=== PATIENT | female | born 2000 | race Caucasian/White ===

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

== ENCOUNTER 2021-02-06 23:07 | Emergency (ER) | payer MEDICAID, SELFPAY ==
[2021-02-06 23:19] VITALS: BP 111/64; PULSE 64; RESP 15; TEMP 36.8; O2SAT 98
[2021-02-06 23:19] LABS: Bilirubin Negative (Negative); Blood Trace-intact (Negative); Clarity Sl Cloudy (Clear); Glucose Negative (Negative); Ketones Negative (Negative); Leukocyte Esterase Trace (Negative); Nitrite Negative (Negative); Specific Gravity 1.025 (1.005-1.025)
[2021-02-06 23:26] LABS: Epithelial Cells Many HPF (Negative); WBC 0-2 HPF (0-5)
[2021-02-06 23:27] LABS: Bacteria Few HPF (Negative); C & S Indicated? No/Sq. Contamination; Crystals Few Amorphous HPF (Negative); Mucus Heavy (Negative)
--- NOTE | 2021-02-06 23:31 | W.ED.GENAD ---
Discharge Plan Disposition Patient Disposition: HOME Condition: Stable Discharge Details Clinical Impression: Dyspareunia Primary Care Provider: Minerva Mckeon ED Provider: Osbaldo Samaniego Home Meds and New Rx's Prescriptions: Continued epinephrine [EpiPen 2-Lorenzo] 0.3 MG/0.3 ML auto-injector 0.3 mg IJ PRN PRN (Reason: Anaphylaxis) Qty: 1 RF: 0 Velvet 14 mcg/24 hour (3 years) Intrauterine Device See Rx Instructions .ROUTE .COMPLEX RF: 0 Discharge Instructions Additional Instructions: Your exam was reassuring today against having a surgical emergency call [facility] at [phone] to set up an appointment if you have severe worsening pain, fever, persistent vomit or feel more ill return to the emergency department Medical Decision Making 20 yo female who denies chronic medical problems comes in with chief complaint of pain after intercourse intermittently for the last few months. She states when she does get the pain it lasts less than an hour and is in the pelvis. Denies vomit, fevers, chills, and no vaginal bleeding or discharge. Has been with only one partner and denies concern for std. No urinary symptoms. She has no tenderness on abdomen exam, no distention, no guarding or rebound. POC hcg negative. Her exam and history are not consistent with entities such as ovarian torsion, appendicitis, perforated viscous or other surgical emergencies and do not feel CT indicated. I did recommend an ultrasound as an outpatient which I offered to order and have done tomorrow when ultrasound is here but she declined and would prefer to follow up with [facility]. I also offered to perform pelvic and speculum exam which she again declined and I feel is reasonable given she denies any bleeding, discharge or vaginal complaints. Will d/c and have her f/u with [facility] and discussed indications to return to the ED which she understood. HPI General Mode of arrival: ambulatory. Date/Time Provider Initiated Documentation: 02/06/21 23:21. Limitations to Documentation: no limitations. Information obtained by: patient. History of Present Illness 20 year old F presents to the emergency department with the chief complaint of pain after intercourse, described as mild, Quality is described as aching, and is localized to the pelvis. Patient reports no radiation. Patient started experiencing this month(s) (4) and it has been intermittent. No relieving factors improve symptom(s), No exacerbating factors reported . Patient notes no other symptoms.. 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 Father No problems noted. Sister No problems noted. Sister No problems noted. Grandfather Diabetes Grandmother No problems noted. Social History Smoking/Tobacco Use Status: Never Smoking risk assessment performed?: Yes Alcohol Intake: never Drug use: Never Substance use type: does not use Do you feel safe at home: Yes Do you feel safe in your relationship?: Yes Exam Const General: no acute distress Orientation: alert HENUT Head: normal to inspection Ears: external ears normal General nose exam: external nose normal Mouth: moist mucous membranes Eyes General: appearance normal, both eyes and all related structures Neck Neck: normal visual inspection Resp Effort & Inspection: normal respiratory effort and able to speak in complete sentences Cardio Rate: regular rate GI Palpation: soft, not firm, no guarding and nontender Skin General skin exam: no rashes or lesions noted Neuro General: patient alert and patient oriented x3 Extrem General: normal to inspection Psych Mental Status: mental status grossly normal Course Vital Signs Vital signs: Vital Signs Temperature 36.8 C 02/06/21 23:19 Pulse 64 02/06/21 23:19 Respiratory Rate 15 02/06/21 23:19 Blood Pressure 111/64 02/06/21 23:19 Pulse Oximetry 98 02/06/21 23:19 Temperature 36.8 C 02/06/21 23:19 Temperature Source Temporal Artery Scan 02/06/21 23:19 Pulse 64 02/06/21 23:19 Respiratory Rate 15 02/06/21 23:19 Respiratory Effort 02/06/21 23:25 Blood Pressure 111/64 02/06/21 23:19 Blood Pressure Position Sitting 02/06/21 23:19 Pulse Oximetry 98 02/06/21 23:19 Oxygen Delivery Method Room Air 02/06/21 23:19 Oxygen Flow Rate 0 02/06/21 23:19 Pain Level 5 02/06/21 23:25 Lab/Test Results Lab/Test Results: Laboratory Tests Range/Units 02/06/21 23:15 Urine Color (Yellow) Yellow Urine Clarity (Clear) Sl Cloudy Urine pH (5-8) 7.0 Ur Specific [place] (1.005-1.025) 1.025 Urine Protein (Negative) mg/dL Trace H Urine Ketones (Negative) mg/dL Negative Urine Blood (Negative) Trace-intact H Urine Nitrite (Negative) Negative Urine Bilirubin (Negative) Negative Urine Urobilinogen (Up TO 0.2) EU/dL 1.0 H Ur Leukocyte Esterase (Negative) Trace H Urine RBC (0-2) HPF 3-5 H Urine WBC (0-5) HPF 0-2 Ur Epithelial Cells (Negative) HPF Many Urine Crystals (Negative) HPF Few Amorphous Urine Bacteria (Negative) HPF Few Urine Mucus (Negative) Heavy Ur Culture Indicated? No/Sq. Contamination Urine Glucose (Negative) mg/dL Negative POC- Test(urine) Negative
[2021-02-06] MEDS: Ibuprofen 600 MG TAB PO (23:41)
== END 2021-02-06 23:45 | disposition home or self-care (01) ==
PROVIDERS: Emergency Provider Emergency Medicine; PCP Family Medicine
DX: N94.10 Unspecified dyspareunia (principal)
CPT/HCPCS: 81025; 99282; 81003; 81015

== ENCOUNTER 2021-07-02 17:12 | Emergency (ER) | payer MEDICAID, SELFPAY ==
[2021-07-02 17:17] VITALS: BP 123/74; PULSE 94; RESP 16; TEMP 37; O2SAT 100
--- NOTE | 2021-07-02 17:21 | ED.GENADUL_ITS ---
Discharge Plan Disposition Patient Disposition: HOME Condition: Stable Discharge Details Clinical Impression: UTI (urinary tract infection) Primary Care Provider: Minerva Mckeon ED Provider: Erinn Joseph Home Meds and New Rx's Prescriptions: New nitrofurantoin monohyd/m-cryst [Macrobid] 100 mg capsule 100 mg PO Q12H 7 Days Qty: 14 RF: 0 No Action epinephrine [EpiPen 2-Lorenzo] 0.3 MG/0.3 ML auto-injector 0.3 mg IJ PRN PRN (Reason: Anaphylaxis) Qty: 1 RF: 0 Velvet 14 mcg/24 hour (3 years) Intrauterine Device See Rx Instructions .ROUTE .COMPLEX RF: 0 Discharge Instructions Instructions: Urinary Tract Infection in Women (ED) Additional Instructions: Urinalysis is concerning for possible UTI. Please take the antibiotics twice daily as directed. Follow up with primary care provider in 3-5 days. Return to ED sooner if any worsening abdominal pain, nausea vomiting diarrhea, fever or concerns. Increase oral fluids. Please take Tylenol or Ibuprofen with food every 4-6 hours as needed for pain and swelling. Stand Alone Forms: Work Release Referrals: Minerva Mckeon MD [Primary Care Provider] - 1 week Medical Decision Making 20-year-old female presents to the ER with chief complaint of lower suprapubic abdominal pain which she describes a sharp began this morning for approximately 30 minutes and then has gradually improved throughout the day. She does report increased pain after urinating and dysuria. She denies any nausea vomiting diarrhea, fever or chills. She denies any CVA tenderness but she does report the pain radiates into her pelvis and around her rectal area. She denies any vaginal discharge or bleeding. Denies any vaginal itching. She reports that she is have something similar to this in the past with pain after intercourse. She reports that this pain is worse. Patient does have an IUD Velvet in place and reports that her last normal menstrual period was approximately 1 month ago. She does report a history of irregular menses. Urinalysis ordered to rule out UTI, discussed possible labs and imaging if Urine is normal. Urinalysis shows 15 ketones, small blood trace leukocytes 10-20 RBCs 20-50 WBCs however does appear to be contaminated with many epithelial cells many bacteria culture is not indicated due to squamous contamination. However, due to patient's clinical presentation and symptoms I will treat her for most likely urinary tract infection. Macrodantin 100 mg twice daily x7 days ordered. Patient given the first dose here. Discussed follow-up care and strict return instructions, verbalized understanding. Patient is requesting a work note which was written for her. Patient to be discharged in hemodynamically stable condition has not complained of any further abdominal pain during her ER visit. HPI General Mode of arrival: ambulatory . Date/Time Provider Initiated Documentation: 07/02/21 17:13 . Information obtained by: patient, RN notes reviewed and old records reviewed . HPI Narrative: 20-year-old female presents to the ER with chief complaint of lower suprapubic abdominal pain which she describes a sharp began this morning for approximately 30 minutes and then has gradually improved throughout the day. She does report increased pain after urinating and dysuria. She denies any nausea vomiting diarrhea, fever or chills. She denies any CVA tenderness but she does report the pain radiates into her pelvis and around her rectal area. She denies any vaginal discharge or bleeding. Denies any vaginal itching. She reports that she is have something similar to this in the past with pain after intercourse. She reports that this pain is worse. Patient does have an IUD Velvet in place and reports that her last normal menstrual period was approximately 1 month ago. She does report a history of irregular menses. Related Data Home Medications Medication Instructions Recorded Confirmed epinephrine [EpiPen 2-Lorenzo] 0.3 mg IJ PRN PRN #1 auto.injct 02/06/17 07/02/21 Velvet See Rx Instructions .ROUTE .COMPLEX 06/06/18 07/02/21 nitrofurantoin monohyd/m-cryst 100 mg PO Q12H 7 Days #14 cap 07/02/21 [Macrobid] Previous Rx's Medication Instructions Recorded epinephrine [EpiPen 2-Lorenzo] 0.3 mg IJ PRN PRN #1 auto.injct 02/06/17 nitrofurantoin monohyd/m-cryst 100 mg PO Q12H 7 Days #14 cap 07/02/21 [Macrobid] Allergies Allergy/AdvReac Type Severity Reaction Status Date / Time Penicillins Allergy Unverified 07/02/21 17:21 General Stated Complaint: Abd Prob YULY: 3 Review of Systems All systems reviewed & are unremarkable except as noted in HPI and below Constitutional Constitutional: Denies chills and Denies fever(s) Gastrointestinal Gastrointestinal: Reports abdominal pain, Denies change in stool character, Denies diarrhea, Denies nausea and Denies vomiting Genitourinary Genitourinary: Reports as per HPI, Reports dyspareunia (History of), Reports dysuria, Reports pelvic pain, Denies vaginal discharge and Denies vaginal pruritus [facility] Active Problem List (Updated 07/02/21 @ 18:06 by Erinn Joseph) Acute streptococcal pharyngitis (Acute) Dyspareunia (Acute) UTI (urinary tract infection) (Acute) Family History Mother No problems noted. Father No problems noted. Sister No problems noted. Sister No problems noted. Grandfather Diabetes Grandmother No problems noted. Social History Smoking/Tobacco Use Status: Never Smoking risk assessment performed?: Yes Alcohol Intake: never Drug use: Never Substance use type: does not use Do you feel safe at home: Yes Do you feel safe in your relationship?: Yes Exam Narrative Exam Narrative: Constitutional: Alert and oriented x3. Appears stated age. Normal body habitus. Head: Normocephalic, no trauma. Eyes: Pupils PERRL, Red reflex noted, EOM's intact. Eyelids symmetrical without lesions, discharge, or swelling. Chest: RRR, Normal S1, S2, distal pulses intact. Resp: Lungs clear to auscultation bilaterally, no wheezes, rales, or rhonchi. Abdomen: Soft, non-distended, Normoactive bowel sounds all 4 quads. Bilateral suprapubic tenderness with palpation no masses palpated. Musculoskeletal: Normal gait, 5/5 strength to all four extremities. Skin: No suspicious rashes or lesions. Capillary refill less than 2 sec. Neurologic: Cranial nerves II-XII intact. Alert and oriented x 3. Motor: No deficits noted. Sensory: Intact bilaterally all 4 extremities. Reflexes: DTR's intact bilaterally.. Hematologic/Lymphatic: No ecchymosis, no lymphadenopathy. Course Vital Signs Vital signs: Vital Signs Temperature 37 C 07/02/21 17:17 Pulse 94 H 07/02/21 17:17 Respiratory Rate 16 07/02/21 17:17 Blood Pressure 123/74 07/02/21 17:17 Pulse Oximetry 100 07/02/21 17:17 Temperature 37 C 07/02/21 17:17 Temperature Source Temporal Artery Scan 07/02/21 17:17 Pulse 94 H 07/02/21 17:17 Respiratory Rate 16 07/02/21 17:17 Blood Pressure 123/74 07/02/21 17:17 Blood Pressure Position Supine 07/02/21 17:17 Pulse Oximetry 100 07/02/21 17:17 Oxygen Delivery Method Room Air 07/02/21 17:17 Oxygen Flow Rate 0 07/02/21 17:17 Pain Level 0 07/02/21 17:17
[2021-07-02 17:51] LABS: Bilirubin Negative (Negative); Blood Small (Negative); Clarity Cloudy (Clear); Glucose Negative (Negative); Ketones 15 mg/dL (Negative); Leukocyte Esterase Trace (Negative); Nitrite Negative (Negative); Specific Gravity 1.025 (1.005-1.025); Urobilinogen 0.2 EU/dL (Up TO 0.2); pH 7.5 (5-8)
[2021-07-02 17:54] LABS: Bacteria Many HPF (Negative); Epithelial Cells Many HPF (Negative); Other Cells Few Renal (Negative); WBC 20-50 HPF (0-5)
[2021-07-02 17:55] LABS: C & S Indicated? No/Sq. Contamination; Casts Negative LPF (Negative); Crystals Negative HPF (Negative); Mucus Negative (Negative)
[2021-07-02] MEDS: MacroBID 100 MG CAP PO (18:18)
== END 2021-07-02 18:13 | disposition home or self-care (01) ==
PROVIDERS: Emergency Provider Registered Nurse Emergency; PCP Family Medicine
DX: N39.0 Urinary tract infection, site not specified (principal)
CPT/HCPCS: 81025; 99283; 81003; 81015

== ENCOUNTER 2021-08-24 19:07 | Outpatient (REF) | payer MEDICAID, SELFPAY | END 2021-08-24 19:08 | disposition home or self-care (01) | LOC: LBN 19:07 | PROVIDERS: PCP Family Medicine; Visit Provider Physician Assistant Medical | DX: R30.0 Dysuria (principal); N39.0 Urinary tract infection, site not specified | CPT/HCPCS: 87329; 87086; 87480; 87510; 87660 ==

== ENCOUNTER 2022-12-10 20:25 | Inpatient (IN) | payer MEDICAID, SELFPAY ==
[2022-12-10 20:38] VITALS: BP 112/61; PULSE 95; RESP 18; TEMP 36.7; O2SAT 100
--- NOTE | 2022-12-10 21:00 | DI.CT_ITS ---
Exam(s) CT ABDOMEN PELVIS W EXAM: CT ABDOMEN PELVIS W CLINICAL HISTORY: RUQ abd pain, N/V. TECHNIQUE: Imaging Protocol: Axial computed tomography images with coronal and sagittal reformatted images were created and reviewed CONTRAST MATERIAL: Intravenous: Omnipaque-350 100cc Oral: None COMPARISON: No exams were available for comparison FINDINGS: VISUALIZED LUNG BASES: No nodules nor pleural effusions evident. ABDOMEN: There is no ascites. LIVER: There are no focal hepatic lesions evident. No dilated intrahepatic ducts. GALLBLADDER/BILIARY: No obvious gallbladder pathology. CBD is not dilated. PANCREAS: No evidence of pancreatic mass nor dilatation of the pancreatic duct. SPLEEN: Spleen is not enlarged. No obvious intrasplenic lesions. Splenic and portal veins are paten t. ADRENALS: There are no significant adrenal masses. KIDNEYS:No cysts evident. No solid renal masses. No calculi nor hydronephrosis.. ABDOMINAL AORTA: Abdominal aorta is not enlarged. LYMPH NODES:There is no retroperitoneal nor paraaortic adenopathy. ABDOMINAL WALL: No evidence of significant anterior abdominal wall nor inguinal hernia. PELVIS: GI: There is an abnormal appearing retrocecal appendix which is fluid-filled and thickened to diamete r of 10 mm and contains partially calcified material and exhibits significant surrounding streaking, these findings consistent with acute appendicitis. No free air.No evidence of significant sigmoid di verticular disease. LYMPH NODES: There is no intrapelvic nor inguinal adenopathy. REPRODUCTIVE: There is an IUD in the uterine cavity. Adnexal regions are age-appropriate although th ere is small amount of fluid in the cul-de-sac noted. URINARY BLADDER: No calculi nor obvious masses evident. Not distended. OSSEOUS: No fractures and no significant osseous lesions. IMPRESSION: 1. Findings are consistent with acute retrocecal appendicitis. There is prominent surrounding streak ing. 2. Small amount of fluid in the cul-de-sac which is either female physiologic or related to the abnor mal appendix. 3. IUD incidentally noted in the uterus. RADIATION DOSE DELIVERED: 643.52mGy.cm Total DLP DATA REPOSITORY: All CT scans at this facility are submitted to the National Radiology Data Registry (NRDR) Dose Index Registry (DIR) with the [employer] ([employer]). RADIATION OPTIMIZATION: All CT scans at this facility use at least one of these dose optimization te chniques: automated exposure control; mA and/or kV adjustment per patient size (includes targeted exa ms where dose is matched to clinical indication); or iterative reconstruction.
--- NOTE | 2022-12-10 21:02 | W.ED.GENAD ---
Discharge Plan Disposition Patient Disposition: Admit to [facility] Condition: Stable Discharge Details Clinical Impression: Acute appendicitis Admit Date/Time: 12/10/22 23:14 Admit Provider: Liseth Reece Attending Provider: Liseth Reece Primary Care Provider: Minerva Mckeon ED Provider: Erinn Joseph Discharge Data Discharge Date/Time-TO BE ENTERED AT DEPARTURE: 12/11/22 00:09 Medical Decision Making 22-year-old female presents to the ER with chief complaint of right upper quadrant abdominal pain nausea vomiting which began this morning. She describes it as sharp it does radiate into her lower back. She denies any fever chills or problems urinating. She does have a history of gallbladder problems. No significant abdominal surgeries in the past. Work-up ordered including CBC CMP lipase urinalysis urine test. White blood cell count 17,000, CT shows acute appendicitis. 2300: Spoke with Dr. Reece who agrees to accept patient for admission with IV antibiotics and n.p.o. status and pain management. Flagyl and Cipro ordered due to patient allergy to penicillin. Morphine 2 mg every hour ordered and Zofran given. Patient received a liter of normal saline here in the department. Normal saline at 150 an hour ordered for the floor. Discussed CT results with patient and family who verbalized understanding. I did discuss n.p.o. status. Patient to be admitted to [facility] for acute appendicitis. This text was generated using [employer] dictation system, please disregard any oddities of phrase or misspellings. Medical Records Medical records reviewed: Yes I reviewed the patient's medical records. Imaging Data Radiologic Study: Imaging: CT Scan Radiologist's impression: Appendix: Abnormal fluid-filled dilated retrocecal appendix with a maximum transverse dimension of 11 mm in keeping with acute appendicitis. Partially calcified appendicoliths. Periappendiceal inflammatory change and fluid along the right paracolic gutter. Intraperitoneal space: Small amount of free fluid in the right lower quadrant and in the deep pelvis. No free air. Vasculature: Normal caliber abdominal aorta. Lymph nodes: No pathologically enlarged mediastinal or hilar lymph nodes. Urinary bladder: Urinary bladder partially collapsed but grossly unremarkable, as seen. Reproductive: Anteverted uterus, normal in size. T-shaped intrauterine device in-situ in good position. Ovaries partially obscured but normal in size. Bones/joints: No acute fracture seen among the bones of the abdomen or pelvis. Small Schmorl's nodes at T11-T12. Soft tissues: No significant ventral or inguinal hernia. IMPRESSION: Acute appendicitis in the retrocecal space. Thank you for allowing us to participate in the care of your patient. Dictated and Authenticated by: Theodore Messina MD Lab Data Lab results reviewed: Yes I reviewed the patient's lab results. Labs: Laboratory Tests Range/Units 12/10/22 12/10/22 12/10/22 21:00 21:00 21:30 WBC (4.4-10.8) 10^3/uL 17.63 H RBC (3.93-5.22) 10^6/uL 5.02 Hgb (11.2-15.7) g/dL 15.1 Hct (36.0-46.0) % 44.9 MCV (80-95) fL 89 MCH (27.0-33.0) pg 30.1 MCHC (32.0-36.0) % 33.6 RDW (11.7-14.6) % 12.3 Plt Count (130-400) 10^3/uL 311 MPV (8.0-11.0) fL 9.8 Immature Gran % 0.4 Neutrophils % 88.2 Lymphocytes % 5.8 Monocytes % 5.4 Eosinophils % 0.0 Basophils % 0.2 Nucleated RBC % (0.0-0.3) % 0.0 Absolute Neutrophils (1.2-6.7) 10^3/uL 15.55 H Absolute Lymphocytes (1.2-3.4) 10^3/uL 1.02 L Absolute Monocytes (0.1-0.8) 10^3/uL 0.95 H Absolute Eosinophils (0.0-0.7) 10^3/uL 0.00 Absolute Basophils (0.0-0.2) 10^3/uL 0.04 Sodium (136-145) mmol/L 142 Potassium (3.5-5.1) mmol/L 3.9 Chloride (98-107) mmol/L 107 Carbon Dioxide (21.0-32.0) mmol/L 25.4 Anion Gap (3-11) mmol/L 9.6 BUN (7-18) mg/dL 8 Creatinine (0.55-1.02) mg/dL 0.7 Est GFR (CKD-EPI 2020) (mL/min/1.73m2) 126.11 Glucose (74-106) mg/dL 102 Calcium (8.5-10.1) mg/dL 9.4 Magnesium (1.8-2.4) mg/dL 1.9 Total Bilirubin (0.2-1.0) mg/dL 0.9 AST (15-37) U/L 13 L ALT (14-59) U/L 15 Alkaline Phosphatase (46-116) U/L 65 Total Protein (6.4-8.2) g/dL 8.2 Albumin (3.4-5.0) g/dL 4.6 Lipase (16-77) U/L 23 Urine Color (Yellow) Yellow Urine Clarity (Clear) Sl Cloudy Urine pH (5-8) 8.0 Ur Specific [place] (1.005-1.025) 1.025 Urine Protein (Negative) mg/dL Trace H Urine Ketones (Negative) mg/dL >=160 H Urine Blood (Negative) Trace-intact H Urine Nitrite (Negative) Negative Urine Bilirubin (Negative) Negative Urine Urobilinogen (Up to 0.2) mg/dL 0.2 Ur Leukocyte Esterase (Negative) Negative Urine RBC (0-2) HPF 5-10 H Urine WBC (0-5) HPF 0-2 Ur Epithelial Cells (Negative) HPF Moderate Urine Crystals (Negative) HPF Negative Urine Bacteria (Negative) HPF Few Urine Mucus (Negative) Heavy Ur Culture Indicated? No Urine Glucose (Negative) mg/dL Negative HPI General Mode of arrival: ambulatory. Date/Time Provider Initiated Documentation: 12/10/22 20:29. Limitations to Documentation: no limitations. Information obtained by: patient, RN notes reviewed and old records reviewed. HPI Narrative: 22-year-old female presents to the ER with chief complaint of right upper quadrant abdominal pain nausea vomiting which began this morning. She describes it as sharp it does radiate into her lower back. She denies any fever chills or problems urinating. She does have a history of gallbladder problems. No significant abdominal surgeries in the past. Related Data Home Medications Medication Instructions Recorded Confirmed epinephrine 0.3 mg/0.3 mL 0.3 mg (0.3 mL) IJ PRN PRN 02/06/17 12/10/22 injection, auto-injector (EpiPen Anaphylaxis ##1 2-Lorenzo) levonorgestrel 14 mcg/24 hrs (3 See Rx Instructions .Route .COMPLEX 06/06/18 12/10/22 yrs) 13.5 mg intrauterine device (Velvet) Previous Rx's Medication Instructions Recorded epinephrine 0.3 mg/0.3 mL 0.3 mg (0.3 mL) IJ PRN PRN 02/06/17 injection, auto-injector (EpiPen Anaphylaxis ##1 2-Lorenzo) Allergies Allergy/AdvReac Type Severity Reaction Status Date / Time Penicillins Allergy Unverified 12/10/22 20:46 General Stated Complaint: Abd Prob YULY: 3 Review of Systems All systems reviewed & are unremarkable except as noted in HPI and below Gastrointestinal Gastrointestinal: Reports abdominal pain, Reports nausea and Reports vomiting PFSH All Active Problems Acute streptococcal pharyngitis (Acute) Dyspareunia (Acute) UTI (urinary tract infection) (Acute) Acute appendicitis (Acute) Surgical History S/P laparoscopic appendectomy (~12/11/22) Family History Mother No problems noted. Father No problems noted. Sister No problems noted. Sister No problems noted. Grandfather Diabetes Grandmother No problems noted. Social History Smoking/Tobacco Use Status: Never Smoking risk assessment performed?: Yes Alcohol Intake: current Alcohol Intake frequency: holidays/special occasions only Drug use: Daily Substance use type: marijuana Do you feel safe at home: Yes Do you feel safe in your relationship?: Yes Exam Narrative Exam Narrative: Constitutional: Alert and oriented x3. Appears stated age. Normal body habitus. Head: Normocephalic, no trauma. Eyes: Pupils PERRL, Red reflex noted, EOM's intact. Eyelids symmetrical without lesions, discharge, or swelling. ENT: Bilateral TM's WNL, External ear normal to inspection, no mastoid TTP, swelling, or erythema, Nasal turbinates WNL, no nasal discharge. Normal dentition, Posterior pharynx WNL, no exudate. Chest: RRR, Normal S1, S2, distal pulses intact. Resp: Lungs clear to auscultation bilaterally, no wheezes, rales, or rhonchi. Abdomen: Soft, non-distended, Generalized tenderness and guarding noted with palpation. Musculoskeletal: Normal gait, 5/5 strength to all four extremities. Skin: No suspicious rashes or lesions. Capillary refill less than 2 sec. Neurologic: Cranial nerves II-XII intact. Alert and oriented x 3. Motor: No deficits noted. Sensory: Intact bilaterally all 4 extremities. Reflexes: DTR's intact bilaterally.. Hematologic/Lymphatic: No ecchymosis, no lymphadenopathy. Course Vital Signs Vital signs: Vital Signs Temperature 36.7 C 12/10/22 20:38 Pulse 95 H 12/10/22 20:38 Respiratory Rate 18 12/10/22 20:38 Blood Pressure 112/61 12/10/22 20:38 Pulse Oximetry 100 12/10/22 20:38 Temperature 36.7 C 12/10/22 20:38 Temperature Source Oral 12/10/22 20:38 Pulse 95 H 12/10/22 20:38 Respiratory Rate 18 12/10/22 20:38 Respiratory Effort Normal, Non-Labored 12/10/22 20:44 Blood Pressure 112/61 12/10/22 20:38 Blood Pressure Position Sitting 12/10/22 20:38 Pulse Oximetry 100 12/10/22 20:38 Oxygen Delivery Method Room Air 12/10/22 20:38 Oxygen Flow Rate 0 12/10/22 20:38 Pain Level 6 12/10/22 20:38
[2022-12-10 21:09] LABS: Abs Immature Grans 0.07 10^3/uL (0.0-0.06); Basophils % 0.2; HCT 44.9 % (36.0-46.0); HGB 15.1 g/dL (11.2-15.7); Immature Grans % 0.4; Lymphocytes % 5.8; MCH 30.1 pg (27.0-33.0); MCHC 33.6 % (32.0-36.0); MCV 89 fL (80-95); MPV 9.8 fL (8.0-11.0); Monocytes % 5.4; Neutrophils % 88.2; Platelet Count 311 10^3/uL (130-400); RBC 5.02 10^6/uL (3.93-5.22); RDW 12.3 % (11.7-14.6); RDW-SD 39.9 fL; WBC 17.63 10^3/uL (4.4-10.8)
[2022-12-10 21:10] LABS: Absolute Basophil Count 0.04 10^3/uL (0.0-0.2); Absolute Lymphocyte Count 1.02 10^3/uL (1.2-3.4); Absolute Monocyte Count 0.95 10^3/uL (0.1-0.8); Absolute Neutrophil Count 15.55 10^3/uL (1.2-6.7)
[2022-12-10] MEDS: Normal Saline 1,000 ML 1000 ML IV (21:15)
[2022-12-10] MEDS: Ondansetron 4 MG/2 ML VIAL IVP (21:15)
[2022-12-10] MEDS: MORPHine 10 MG/ML VIAL 2 MG IVP (21:15)
[2022-12-10 21:32] LABS: ALT 15 U/L (14-59); AST 13 U/L (15-37); Albumin 4.6 g/dL (3.4-5.0); Alkaline Phosphatase 65 U/L (46-116); Anion Gap 9.6 mmol/L (3-11); BUN 8 mg/dL (7-18); Bilirubin, Total 0.9 mg/dL (0.2-1.0); CO2 25.4 mmol/L (21.0-32.0); CREATININE 0.7 mg/dL (0.55-1.02); Calcium 9.4 mg/dL (8.5-10.1); Chloride 107 mmol/L (98-107); Estimated GFR 126.11 (mL/min/1.73m2); Glucose 102 mg/dL (74-106); Lipase 23 U/L (16-77); Magnesium 1.9 mg/dL (1.8-2.4); Potassium 3.9 mmol/L (3.5-5.1); Sodium 142 mmol/L (136-145); Total Protein 8.2 g/dL (6.4-8.2)
[2022-12-10 21:51] LABS: Bilirubin Negative (Negative); Blood Trace-intact (Negative); Clarity Sl Cloudy (Clear); Glucose Negative (Negative); Ketones >=160 mg/dL (Negative); Leukocyte Esterase Negative (Negative); Nitrite Negative (Negative); Specific Gravity 1.025 (1.005-1.025); Urobilinogen 0.2 mg/dL (Up to 0.2)
[2022-12-10] MEDS: Normal Saline - Diluent 50 ML VIAL IJ (22:14)
[2022-12-10] MEDS: Normal Saline Flush 10 ML SYR IVP (22:14)
[2022-12-10] MEDS: Omnipaque 350 MG/ML 100 ML BTL IJ (22:14)
[2022-12-10 22:25] LABS: Bacteria Few HPF (Negative); Crystals Negative HPF (Negative); Epithelial Cells Moderate HPF (Negative); Mucus Heavy (Negative); WBC 0-2 HPF (0-5)
[2022-12-10 22:26] LABS: C & S Indicated? No
--- NOTE | 2022-12-10 23:00 | DI.VRAD_ITS ---
Addendum created by Theodore Messina MD on 12/10/2022 11:01:36 PM EDT: This case was discussed personally with ANTHONY TONG at 11:01 PM EDT on 12/10/2022. Initial report created on 12/10/2022 10:59:22 PM EDT: PROCEDURE INFORMATION: Exam: CT Abdomen And Pelvis With Contrast Exam date and time: 12/10/2022 10:08 PM Age: 22 years old Clinical indication: Abdominal pain; Localized; Right upper quadrant (ruq); Patient HX: Ruq pain, n/v TECHNIQUE: Imaging protocol: Computed tomography of the abdomen and pelvis with contrast. Radiation optimization: All CT scans at this facility use at least one of these dose optimization techniques: automated exposure control; mA and/or kV adjustment per patient size (includes targeted exams where dose is matched to clinical indication); or iterative reconstruction. Contrast material: OMNIPAQUE 350; Contrast volume: 100 ml; Contrast route: INTRAVENOUS (IV); COMPARISON: No relevant prior studies available. FINDINGS: Lungs: Lung bases clear. Liver: Normal appearing liver. Gallbladder and bile ducts: Moderate gallbladder distention. 2 mm calcified gallstone. No biliary dilatation. Pancreas: Normal appearing pancreas. Spleen: Normal appearing spleen. Adrenal glands: Normal appearing adrenal glands. Kidneys and ureters: Small indeterminate hypoattenuating right renal lesion, incompletely characterized but statistically most likely a small renal cyst. Otherwise normal-appearing kidneys. Stomach and bowel: No oral contrast. Stomach partially distended with fluid. No small bowel dilatation to suggest obstruction. Normal-appearing colon. No evidence of diverticulitis or colitis. Appendix: Abnormal fluid-filled dilated retrocecal appendix with a maximum transverse dimension of 11 mm in keeping with acute appendicitis. Partially calcified appendicoliths. Periappendiceal inflammatory change and fluid along the right paracolic gutter. Intraperitoneal space: Small amount of free fluid in the right lower quadrant and in the deep pelvis. No free air. Vasculature: Normal caliber abdominal aorta. Lymph nodes: No pathologically enlarged mediastinal or hilar lymph nodes. Urinary bladder: Urinary bladder partially collapsed but grossly unremarkable, as seen. Reproductive: Anteverted uterus, normal in size. T-shaped intrauterine device in-situ in good position. Ovaries partially obscured but normal in size. Bones/joints: No acute fracture seen among the bones of the abdomen or pelvis. Small Schmorl's nodes at T11-T12. Soft tissues: No significant ventral or inguinal hernia. IMPRESSION: Acute appendicitis in the retrocecal space. Dictated and Authenticated by: Theodore Messina MD. Ordering:MICHAEL Plasencia MD
[2022-12-10] MEDS: CIPROFLOXACIN 400 MG/200 ML BAG 200 MG IVPB (23:38)
[2022-12-10 23:49] VITALS: BP 118/75; PULSE 71; RESP 16; TEMP 36.2; O2SAT 100
[2022-12-11] VITALS (12 sets, daily range): BP systolic 94–118; BP diastolic 50–79; PULSE 63–88; RESP 16–18; TEMP 36.1–37.2; O2SAT 97–100; BMI 20.7
[2022-12-11] MEDS: Normal Saline 1,000 ML 150 ML IV (00:38)
[2022-12-11] MEDS: Ondansetron 4 MG/2 ML VIAL IVP (00:38)
[2022-12-11] MEDS: Normal Saline Flush 10 ML SYR IVP ×2 (00:39→05:58)
[2022-12-11] MEDS: metroNIDAZOLE 500 MG/100 ML BAG 100 MG IVPB ×2 (00:39→07:47)
[2022-12-11] MEDS: MORPHine 2 MG/ML SYR IVP (05:57)
--- NOTE | 2022-12-11 06:43 | ANES.PREOP_ITS ---
General Info Date of Service Date Performed: 12/11/22 Height: 5 ft 5 in Weight: 56.7 kg Body Mass Index (BMI): 20.7 Surgical Procedure: Operation Date: 12/11/22 07:40 Proposed Procedure Side Surgeon p Appendectomy Laparoscopic Liseth Reece MD Meds Allergies and Home Medications Allergies Allergy/AdvReac Type Severity Reaction Status Date / Time Penicillins Allergy Unverified 12/10/22 20:46 Home Medication Medication Instructions Recorded epinephrine 0.3 mg/0.3 mL 0.3 mg (0.3 mL) IJ PRN PRN 02/06/17 injection, auto-injector (EpiPen Anaphylaxis ##1 2-Lorenzo) levonorgestrel 14 mcg/24 hrs (3 See Rx Instructions .Route .COMPLEX 06/06/18 yrs) 13.5 mg intrauterine device (Velvet) Current Visit Medications: Current Medications Generic Name Dose Route Start Last Admin Trade Name Freq PRN Reason Stop Dose Admin Sodium Chloride 1,000 mls @ 150 mls/hr 12/10/22 23:15 12/11/22 00:38 Saline 1000ml Bag IV 150 mls/hr INFUSION RICHI Administration IV Miscellaneous Supplies 1 each 12/10/22 21:15 Iv Access-Emergency Dept IV DIRECTED RICHI IV Miscellaneous Supplies 1 each 12/10/22 23:15 Iv Access-Emergency Dept IV DIRECTED RICHI Iohexol 100 ml 12/10/22 22:15 12/10/22 22:14 Omnipaque 350 Mg/Ml 100 Ml Btl IJ 01/09/23 23:59 100 ml DIRECTED RICHI Administration Morphine Sulfate 2 mg 12/10/22 23:14 12/11/22 05:57 Morphine 2 Mg/Ml Syr IVP 2 mg Q1H PRN PRN Administration Ondansetron HCl 4 mg 12/10/22 23:14 12/11/22 00:38 Ondansetron 4 Mg/2 Ml Vial IVP 4 mg Q4H PRN PRN Administration Sodium Chloride 0 ml 12/10/22 21:03 12/11/22 05:58 Normal Saline Flush 10 Ml Syr IVP 10 ml PRN PRN Administration Sodium Chloride 50 ml 12/10/22 22:15 12/10/22 22:14 Normal Saline - Diluent 50 Ml Vial IJ 50 ml .FOR DI USE RICHI Administration Sodium Chloride 0 ml 12/10/22 23:14 Normal Saline Flush 10 Ml Syr IVP PRN PRN PFSH Active Problems Active Problems: Problem Status Onset Code Acute streptococcal pharyngitis J02.0 Dyspareunia UTI (urinary tract infection) N39.0 Acute appendicitis K35.80 Tobacco Smoking/Tobacco Use Status: Never Alcohol Alcohol Intake: current Alcohol intake frequency: holidays/special occasions only Substance Use Substance use: Daily Substance use type: marijuana Vital Signs and Lab Results Vital Signs Most Recent Vital Signs in EMR: Most Recent Vital Signs Temp Pulse Resp BP Pulse Ox 36.8 C 75 16 111/71 97 12/11/22 04:01 12/11/22 04:01 12/11/22 04:01 12/11/22 04:01 12/11/22 04:01 Point of Care Results Point of Care Results: POC- Test(urine) Negative 12/10/22 21:25 Lab Results 12/10/22 21:00 12/10/22 21:00 Blood Type / Crossmatch: No Data to Display Complete Blood Count: White Blood Count 17.63 10^3/uL (4.4-10.8) H 12/10/22 21:00 Red Blood Count 5.02 10^6/uL (3.93-5.22) 12/10/22 21:00 Hemoglobin 15.1 g/dL (11.2-15.7) 12/10/22 21:00 Hematocrit 44.9 % (36.0-46.0) 12/10/22 21:00 Platelet Count 311 10^3/uL (130-400) 12/10/22 21:00 Complete Metabolic Panel: Sodium 142 mmol/L (136-145) 12/10/22 21:00 Potassium 3.9 mmol/L (3.5-5.1) 12/10/22 21:00 Chloride 107 mmol/L (98-107) 12/10/22 21:00 Carbon Dioxide 25.4 mmol/L (21.0-32.0) 12/10/22 21:00 BUN 8 mg/dL (7-18) 12/10/22 21:00 Creatinine 0.7 mg/dL (0.55-1.02) 12/10/22 21:00 Est GFR (CKD-EPI 2021) 126.11 (mL/min/1.73m2) 12/10/22 21:00 Magnesium 1.9 mg/dL (1.8-2.4) 12/10/22 21:00 Calcium 9.4 mg/dL (8.5-10.1) 12/10/22 21:00 Albumin 4.6 g/dL (3.4-5.0) 12/10/22 21:00 Glucose 102 mg/dL (74-106) 12/10/22 21:00 Liver Function Panel: Alanine Aminotransferase (ALT/SGPT) 15 U/L (14-59) 12/10/22 21: 00 Aspartate Amino Transf (AST/SGOT) 13 U/L (15-37) L 12/10/22 21: 00 Coagulation Panel: No Data to Display Cardiac Panel: No Data to Display Arterial Blood Gas: No Data to Display Venous Blood Gas: No Data to Display Pancreas Panel: Lipase 23 U/L (16-77) 12/10/22 21:00 Thyroid Panel: No Data to Display Infectious Disease: No Data to Display Blood Cultures: No Data to Display Toxicology Panel: 2 No Data to Display Panel: No Data to Display Anesthesia Assessment and Plan Anesthesia History Personal History: No History of Anesthesia Complications Family History: No Family History of Anesthesia Complications Exercise Tolerance Exercise Tolerance: Metabolic Equivalents>4 Pertinent Negatives Pertinent Negatives: No Symptoms of GERD Cardiac & Pulmonary Exam Cardiac Exam: Normal S1/S2 Heart Sounds Pulmonary Exam: Clear Bilateral Breath Sounds Implantable Cardiac Device Does patient have a Pacemaker or an ICD?: No Airway Exam Known Difficult Airway: No Mallampati Class: 2 Mouth Opening: Normal (> 3cm) Thyromental Distance: Greater than 3 cm Neck Range of Motion: Full ROM Neck Circumference: Normal Teeth Condition: Normal Dentition ASA Classification ASA Score: ASA 2 Emergency Case?: Yes NPO Status NPO Status: NPO Clears >2 hours, Solids >8 hours Status Status: Negative HCG Anesthesia Plan Resuscitation Status: Full Code Anesthesia Technique: General Anesthesia Airway Planned: Endotracheal Tube Monitors Used: Standard Monitors
--- NOTE | 2022-12-11 06:44 | HPE_ITS ---
Date of service: 12/11/22 Time of Service: 06:44 Assessment and Plan Assessment and plan (1) Acute appendicitis: Status: Acute Assessment and plan: Ms Shankar is a pleasant 22 year old female who started having abdominal pain yesterday morning. As the day went on the pain got worse and she came to the ER. Exam and CT scan findings are consistent with acute appendicitis. Risks, benefits and complications have been reviewed. Complications include but are not limited to bleeding, infection, injury to adjacent bowel, abscess formation, staple line leak, inability to do the procedure laparoscopically and adverse reaction to the medications. Questions were entertained and answered to their satisfaction and they wished to proceed. No guarantees were given or implied. She understands the complications and wishes to proceed. Proceed with Laparoscopic Appendectomy History of Present Illness Consults Consult date: 12/10/22 Narrative: Ms Shankar is a pleasant 22 year old female who woke up yesterday morning feeling ill. Thought she may have an upset stomach. She went back to bed but every time she woke up she had worsening pain. Finally she came to the ER. She denies any Nausea, Vomiting or diarrhea. Work up in the ED showed an elevated WBC count at 17.63. CT scan done, which I have reviewed, showed a thickened appendix. It is retrocecal in its position. There were no signs of rupture. Patient was admitted for surgery this morning. Review of Systems Constitutional Constitutional: Denies fever(s), Denies headache(s), Denies poor appetite, Denies weakness and Denies weight loss ENT Ears, Nose, Mouth, and Throat: Denies headache(s) Cardiovascular Cardiovascular: Denies chest pain, Denies chest pain at rest, Denies irregular heart rhythm, Denies palpitations and Denies dyspnea Respiratory Respiratory: Denies cough and Denies dyspnea Gastrointestinal Gastrointestinal: Reports as per HPI Genitourinary Genitourinary: Reports system reviewed and no additional complaints, except as documented Musculoskeletal Musculoskeletal: Reports system reviewed and no additional complaints, except as documented Integumentary/Breasts Skin/Breast: Reports system reviewed and no additional complaints, except as documented Neurologic Neurologic: Denies headache(s) and Denies weakness Psychiatric Psychiatric: Reports system reviewed and no additional complaints, except as documented Endocrine Endocrine: Denies palpitations Hematologic/Lymphatic Hematologic/Lymphatic: Reports system reviewed and no additional complaints, except as documented PFSH All Active Problems Acute streptococcal pharyngitis (Acute) Dyspareunia (Acute) UTI (urinary tract infection) (Acute) Acute appendicitis (Acute) Family History Mother No problems noted. Father No problems noted. Sister No problems noted. Sister No problems noted. Grandfather Diabetes Grandmother No problems noted. Social History Smoking/Tobacco Use Status: Never Smoking risk assessment performed?: Yes Alcohol Intake: never Drug use: Daily Substance use type: marijuana Do you feel safe at home: Yes Do you feel safe in your relationship?: Yes Meds Allergies and Home Medications Allergies Allergy/AdvReac Type Severity Reaction Status Date / Time Penicillins Allergy Unverified 12/10/22 20:46 Home Medications Medication Instructions Recorded Confirmed Type epinephrine 0.3 mg/0.3 mL 0.3 mg (0.3 mL) IJ PRN PRN 02/06/17 12/10/22 Rx injection, auto-injector (EpiPen Anaphylaxis ##1 2-Lorenzo) levonorgestrel 14 mcg/24 hrs (3 See Rx Instructions .Route .COMPLEX 06/06/18 12/10/22 History yrs) 13.5 mg intrauterine device (Velvet) Exam Const General: cooperative, comfortable and no acute distress Nutritional Appearance: thin Orientation: alert and oriented x3 HENMT Head: normocephalic and atraumatic Resp Effort & Inspection: normal respiratory effort Auscultation: clear to auscultation bilaterally Cardio Rate: regular rate Rhythm: regular rhythm Heart Sounds: no gallops, no murmurs and no rubs GI Inspection: normal to inspection Palpation: soft and tender in the RLQ Auscultation: normoactive bowel sounds Results Imaging Abdomen CT scan report/results: report reviewed and image reviewed CT scan - pelvis: report reviewed and image reviewed Labs 12/10/22 21:00 12/10/22 21:00 Labs: Laboratory Results - last 24 hr 12/10/22 12/10/22 12/10/22 21:00 21:00 21:30 WBC 17.63 H RBC 5.02 Hgb 15.1 Hct 44.9 MCV 89 MCH 30.1 MCHC 33.6 RDW 12.3 Plt Count 311 MPV 9.8 Immature Gran % 0.4 Neutrophils % 88.2 Lymphocytes % 5.8 Monocytes % 5.4 Eosinophils % 0.0 Basophils % 0.2 Nucleated RBC % 0.0 Absolute Neutrophils 15.55 H Absolute Lymphocytes 1.02 L Absolute Monocytes 0.95 H Absolute Eosinophils 0.00 Absolute Basophils 0.04 Sodium 142 Potassium 3.9 Chloride 107 Carbon Dioxide 25.4 Anion Gap 9.6 BUN 8 Creatinine 0.7 Est GFR (CKD-EPI 2020) 126.11 Glucose 102 Calcium 9.4 Magnesium 1.9 Total Bilirubin 0.9 AST 13 L ALT 15 Alkaline Phosphatase 65 Total Protein 8.2 Albumin 4.6 Lipase 23 Urine Color Yellow Urine Clarity Sl Cloudy Urine pH 8.0 Ur Specific [place] 1.025 Urine Protein Trace H Urine Ketones >=160 H Urine Blood Trace-intact H Urine Nitrite Negative Urine Bilirubin Negative Urine Urobilinogen 0.2 Ur Leukocyte Esterase Negative Urine RBC 5-10 H Urine WBC 0-2 Ur Epithelial Cells Moderate Urine Crystals Negative Urine Bacteria Few Urine Mucus Heavy Ur Culture Indicated? No Urine Glucose Negative Last Vital Signs Temp 98.2 F 12/11/22 04:01 Pulse 75 12/11/22 04:01 Resp 16 12/11/22 04:01 BP 111/71 12/11/22 04:01 Pulse Ox 97 12/11/22 04:01 PAWSS Have you Been Recently Intoxicated or Drunk Within the Last 30 days?: No Have you Ever Experienced Previous Episodes of Alcohol Withdrawal?: No Have you ever Experienced Withdrawal Seizures?: No Have you ever Experienced Delirium Tremens(DT)s?: No Have you ever undergone Alcohol Rehabilitation Treatment (i.e, inpt ot outpatient treatment programs)?: No Have you ever Experienced Blackouts?: No Have you ever Combined Alcohol with other Downers within the last 90 days?: No Have you ever Combined Alcohol with any other Substance of Abuse during the last 90 days?: No Positive Blood Alcohol level on Presentation? [PCS.BAL]: No Evidence of Increased Autonomic Activity (i.e. HR>120, tremor, sweating, agitation, nausea)?: No Result: 0 Time Spent Time spent with Patient: <40 minutes Time was spent: preparing to see the patient(eg.review tests), obtaining and/or reviewing separately otained hiistory, indepentently interpreting results and counseling the patient
[2022-12-11] MEDS: Lactated Ringers 1,000 ML 30 ML IV (07:30)
--- NOTE | 2022-12-11 08:10 | APP_PTH ---
PATIENT: Kemar Shankar LOC: U#:[id number] AGE/SX: 22/F ROOM: 214 RE12/10/[address]: Liseth Reece MD : 2000 BED: A DIS: 12/11/2022 SPEC #: [id number] RECD: 12/11/22 12:14 STATUS: TAJ REQ #: [id number] LUCIANA: 12/11/22 08:[address]: Liseth Reece DEPT: Surgical Specimen RECD BY: Mandie Fortune ENTERED: 12/11/22 12:14 SP TYPE: Appendix OTHR DR: Minerva Mckeon Tissues: 1 - APPENDIX NOT INCIDENTAL Procedures: GROSS AND MICRO LEVEL 3 Comments: [id number]
[2022-12-11] MEDS: Bupivacaine 0.25% Pres-Free 30 ML VIAL (08:13)
[2022-12-11] MEDS: CIPROFLOXACIN 400 MG/200 ML BAG 200 MG IVPB (08:20)
--- NOTE | 2022-12-11 08:28 | ROE_ITS ---
Date of service: 12/11/22 Time of Service: 08:28 Operative Note Operative Note DATE OF PROCEDURE: 12/11/22 PRE-OP DIAGNOSIS: acute appendicitis POST-OP DIAGNOSIS: same PROCEDURE: Laparoscopic Appendectomy SURGEON: Liseth Reece ENVIRONMENTAL PROGRAMS MANAGER: Leilani Oh ANESTHESIA TYPE: Local By Surgeon and General LMA/ETT Refer to Anesthesia Record ESTIMATED BLOOD LOSS: 20 PATHOLOGY: other (appendix) COMPLICATIONS: None Patient was transported to: PACU Patient's condition: stable Indications: Ms Shankar is a pleasant 22 year old female who started having abdominal pain yesterday morning. As the day went on the pain got worse and she came to the ER. Exam and CT scan findings are consistent with acute appendicitis. Risks, benefi ts and complications have been reviewed. Complications include but are not limited to bleeding, infection, injury to adjacent bowel, abscess formation, staple line leak, inability to do the procedure laparoscopically and adverse reaction to the medications. Questions were entertained and answered to their satisfaction and they wished to proceed. No guarantees were given or implied. She understands the complications and wishes to proceed. Proceed with Laparoscopic Appendectomy Findings: acute appendicitis Procedure Description: After informed consent was obtained the patient was taken to the operating room placed in the supine position, SCDs were applied as well as monitors. A timeout was done. The patient was then placed under general anesthesia and intubated without any difficulty. At this point the abdomen was prepped and draped in a sterile surgical fashion with chlorhexidine. A timeout was done and the patient's name, date of , operation to be performed, DVT prophylaxis, antibiotic given, and fire risk was assessed. 0.25% Bupivocaine was injected into the dermis just above the umbilicus. A small 5 mm incision was made with an 11 blade. The skin was grasped with penetrating towel clamps on either side of the incision. The fascia was grasped with cockers and opened sharply with 11 blade. A 5 mm Visiport was placed under direct visualization into the abdomen. The abdomen was insufflated. Local anesthetic was then injected just above the pubic symphysis at the midline. A small 5 mm incision was made with an 11 blade and another 5 mm port was placed under direct visualization into the abdomen. The local anesthetic was then injected in the left lower quadrant area and a 12 mm incision was made with an 11 blade. A 12 mm port was then placed under direct visualization. The patient's bed was then turned to the left and head down allowing me to sweep of the small bowel out of the right lower quadrant. The cecum was gently grasped and the appendix was identified. The appendix was retrocecal. The appendix looked inflammed and thickened at the tip. No purulent fluid was noted. The appendix was grasped at the neck and pulled up slightly allowing me to visualize the junction with the cecum. Using the laparoscopic LigaSure the mesoappendix was slowly transected. Using a laparoscopic straight stapler the appendix was then transected at the junction with the cecum. The appendix was placed into an Endo Catch bag and removed through the 12 mm port site. The port was placed back into the abdomen and the staple line was identified. No bleeding was noted. The transected mesentery was identified and no bleeding was noted. 10 CC of the local was injected above the liver to help with postop pain. The 2 5 mm ports were then removed under direct visualization and no bleeding was noted from the fascia. The insufflation was stopped and the 12 mm port was removed. The 12 mm port site fascia was closed with a 0 Vicryl [id number] suture. The skin was then closed with 4-0 Vicryl. The skin was cleaned and dried and skin affix was applied. The patient was woken up, extubated and taken back to recovery room in stable condition. There were no immediate complications. Sponge, instrument and needle counts were correct at the end of the case x2.
--- NOTE | 2022-12-11 08:45 | W.PM.DS.N ---
Date of service: 12/11/22 Time of Service: 13:17 DS: Diagnosis Discharge Diagnosis (1) Acute appendicitis: Status: Acute Asessment and Plan: Patient is seen postoperatively. She is doing well. She has eaten without Nausea. Mild shoulder pain. Has taken no narcotics since surgery. We discussed the findings during surgery as well as post-operative instructions. Her questions were answered and she wished to go home. Return precautions reviewed. Discharge Plan Disposition Patient Disposition: Home Condition: Improving Discharge Details Reason For Visit: Acute Appendicitis Admit Date/Time: 12/10/22 23:14 Admit Provider: Liseth Reece Attending Provider: Liseth Reece Primary Care Provider: Minerva Mckeon [facility] Hospital Course: Kemar is a pleasant 22 year old female who came in last night complaining of abdominal pain. CT scan and exam were consistent with acute appendicitis. She underwent Laparoscopic Appendectomy. After surgery she was able to eat and drink without Nausea or Vomiting. Her incision were c/d/i. Her pain was controlled on Tylenol, and ibuprofen. Patient will be discharged home. No antibiotics needed. Home Meds and New Rx's Prescriptions: Continued epinephrine [EpiPen 2-Lorenzo] 0.3 MG/0.3 ML auto-injector 0.3 mg IJ PRN PRN (Reason: Anaphylaxis) Qty: 1 0RF Velvet 14 mcg/24 hour (3 years) Intrauterine Device See Rx Instructions .ROUTE .COMPLEX Rx Instructions: 1 device Discharge Instructions Instructions: Laparoscopic Appendectomy (DC) Additional Instructions: Activity at Home after surgery: 1. Make sure you walk outside at least 4 times per day 2. You should be able to climb a flight of stairs 3. No driving while in pain or taking pain medications 4. No strenuous activity or heavy lifting for 2 weeks (laparoscopic surgery) Diet, Nutrition, & wound healin. Avoid alcohol until after you are recovered from your surgery 2. Make sure to eat plenty of lean protein (meat, fish, eggs, cottage cheese, beans) 3. Eat a variety of fruits and vegetables. Eat plenty of high fiber foods to avoid constipation. 4. Drink plenty of liquids to stay hydrated and avoid constipation Pain Medications: 1. Tylenol 650mg every 6 hours as needed and Ibuprofen 600 mg every 6 hours as needed. You may alternate between the 2 medications every 3 hours 2. If a narcotic has been prescribed take as directed only for breakthrough pain For Constipation: 1. Take Milk of Magnesia or MiraLax as needed for constipation Other: 1. You may shower daily. Do not scrub the incisions 2. Do not soak the incisions for 1 week 3. You may alternate ice and heat as needed for pain and swelling Wound Care: 1. Keep the incisions clean and dry Please call our office if you develop: 1. Fevers >101.5 2. Nausea or Vomiting 3. Worsening pain 4. Redness and thick discharge from the wounds If after hours please call the Hospital at and ask to speak to the on-call surgeon Stand Alone Forms: Nursing Discharge Form Referrals: Liseth Reece MD [ [facility] STAFF PHYSICIAN] - 12/24/22 8:00 am Activity:: as above Equipment/Supplies:: No Equipment Needed Diet:: As Tolerated Discharge Orders Discharge Orders: Discharge Order (Routine); Ordered 12/11/22 Ordered By: Liseth Reece DS: Summary Time Spent with Patient providing and/or coordinating discharge services: Less than 30 minutes Status at Discharge Functional status at discharge: independent ambulation Overall status at discharge: patient is progressing back to baseline Mental Status: mental status grossly normal Speech and Movement: speech and movement normal Mood: congruent mood Affect: normal affect Exam GI Palpation: soft, no hepatosplenomegaly and tender (appropriate around the incisions) Psych Mental Status: mental status grossly normal Speech and Movement: speech and movement normal Mood: congruent mood Affect: normal affect DS: Data Vitals/I&O Vitals and I&O: Vital Signs Temperature 99.0 F 12/11/22 06:43 Temperature Source Tympanic 12/11/22 06:43 Pulse 86 12/11/22 06:43 Pulse Rhythm Regular 12/11/22 00:52 Respiratory Rate 18 12/11/22 06:43 Respiratory Effort Normal 12/11/22 00:52 Respiratory Depth Normal 12/11/22 00:52 Respiratory Pattern Normal 12/11/22 00:52 Blood Pressure 109/62 12/11/22 06:43 Blood Pressure Position Sitting 12/10/22 20:38 Pulse Oximetry 97 12/11/22 06:43 Oxygen Delivery Method Room Air 12/11/22 06:43 Oxygen Flow Rate 0 12/11/22 06:43 Pain Level 0 12/11/22 06:43 Intake & Output 12/10/22 12/10/22 12/11/22 11:59 23:59 11:59 Intake Total 1800 / 1800 Output Total 400 / 400 Balance 1400 / 1400 Weight 130 lb 125 lb 0.034 oz Intake: IV 1800 / 1800 Output: Urine 400 / 400 Other: Urine Color Yellow Urine Appearance Clear Urine Odor Normal Voiding Methods Toilet Data Completed and Pending Labs on day of discharge: Labs from last 24 hours 12/10/22 12/10/22 12/10/22 21:30 21:00 21:00 WBC 17.63 H RBC 5.02 Hgb 15.1 Hct 44.9 MCV 89 MCH 30.1 MCHC 33.6 RDW 12.3 Plt Count 311 MPV 9.8 Immature Gran % 0.4 Neutrophils % 88.2 Lymphocytes % 5.8 Monocytes % 5.4 Eosinophils % 0.0 Basophils % 0.2 Nucleated RBC % 0.0 Absolute Neutrophils 15.55 H Absolute Lymphocytes 1.02 L Absolute Monocytes 0.95 H Absolute Eosinophils 0.00 Absolute Basophils 0.04 Sodium 142 Potassium 3.9 Chloride 107 Carbon Dioxide 25.4 Anion Gap 9.6 BUN 8 Creatinine 0.7 Est GFR (CKD-EPI 2020) 126.11 Glucose 102 Calcium 9.4 Magnesium 1.9 Total Bilirubin 0.9 AST 13 L ALT 15 Alkaline Phosphatase 65 Total Protein 8.2 Albumin 4.6 Lipase 23 Urine Color Yellow Urine Clarity Sl Cloudy Urine pH 8.0 Ur Specific [place] 1.025 Urine Protein Trace H Urine Ketones >=160 H Urine Blood Trace-intact H Urine Nitrite Negative Urine Bilirubin Negative Urine Urobilinogen 0.2 Ur Leukocyte Esterase Negative Urine RBC 5-10 H Urine WBC 0-2 Ur Epithelial Cells Moderate Urine Crystals Negative Urine Bacteria Few Urine Mucus Heavy Ur Culture Indicated? No Urine Glucose Negative PFSH All Active Problems Acute streptococcal pharyngitis (Acute) Dyspareunia (Acute) UTI (urinary tract infection) (Acute) Acute appendicitis (Acute) Surgical History S/P laparoscopic appendectomy (~12/11/22) Family History Mother No problems noted. Father No problems noted. Sister No problems noted. Sister No problems noted. Grandfather Diabetes Grandmother No problems noted. Social History Smoking/Tobacco Use Status: Never Smoking risk assessment performed?: Yes Alcohol Intake: current Alcohol Intake frequency: holidays/special occasions only Drug use: Daily Substance use type: marijuana Do you feel safe at home: Yes Do you feel safe in your relationship?: Yes Time Spent with Patient Time Spent with Patient: <45 minutes Time was spent: preparing to see the patient(eg.review tests) and counseling the patient
--- NOTE | 2022-12-11 09:20 | W.ANESPOSTOP ---
Postoperative Evaluation Date, Time and Location Date Performed: 12/11/22 Time Performed: 09:20 Patient Location: Day Surgery Unit Vital Signs Most Recent Imported Vital Signs: Most Recent Vital Signs Temp Pulse Resp BP Pulse Ox 37.1 C 74 17 103/50 L 98 12/11/22 09:05 12/11/22 09:05 12/11/22 09:05 12/11/22 09:05 12/11/22 09:05 Pain Score Most Recent Pain Score: Most Recent Pain Score Pain Level 0 12/11/22 09:05 Assessment Mental Status: Awake (Alert & Oriented to Patient Baseline) Airway and Respiratory Function: Patent airway with normal (patient baseline) respiratory exam Cardiovascular Function: Hemodynamically Stable Hydration Status: Adequately Hydrated Nausea & Vomiting: No Nausea or Vomiting Pain: Pt. Denies Any Pain Peripheral Nerve Block: Patient did not receive a nerve block
--- NOTE | 2022-12-11 10:02 | PDOC.CMIN ---
- If Service Date Differs Date of service: 12/11/22 Time of Service: 10:02 Care Management Initial Assess REASON FOR HOSPITALIZATION:: appendicitis PAST MEDICAL HISTORY/PAST SURGICAL HISTORY:: All Active Problems . Acute streptococcal pharyngitis (Acute). Dyspareunia (Acute). UTI (urinary tract infection) (Acute). Acute appendicitis (Acute) PREVIOUS FUNCTIONAL STATUS/SOCIAL/FAMILY SUPPORTS:: Kemar lives in [place] with her mother. ADVANCE DIRECTIVES:: none on file Has patient been provided with info about the portal/API?: Yes Did the patient sign up for the portal?: No CODE STATUS:: Full Code INSURANCE COVERAGE / FINANCIAL [place] PRIMARY CARE PHYSICIAN:: Minerva Mckeon POTENTIAL DISCHARGE NEEDS:: follow up with surgeon and plan of care PATIENT/FAMILY EDUCATION NEEDS:: review of dicharge instructions, limitations, activity, follow up plan, discuss Ask Me Three TRANSPORTATION:: via private vehicle with family PLAN:: Anticipate Kemar will discharge home with no new services. She francine follow up with her surgeon and plan of care as prescribed and transport with family. CM will follow and support discharge planning concerns.
[2022-12-11] MEDS: Ibuprofen 400 MG TAB PO (11:23)
--- NOTE | 2022-12-11 19:06 | PDOC.CMPRO ---
- If Service Date Differs Date of service: 12/11/22 Time of Service: 19:06 Care Management Progress Note Kemar was admitted last evening with appendicitis. She had a laparoscopic appendectomy this morning and was discharged home this afternoon before CM was able to meet with her. Per provider, she did well and did not require any services at home.
== END 2022-12-11 13:40 | disposition home or self-care (01) | DRG 343 ==
LOC: ER 23:47 → MS 12-11 00:18
PROVIDERS: Admitting Provider Surgery; Emergency Provider Registered Nurse Emergency; PCP Family Medicine; Visit Provider Surgery
PROC: 0DTJ4ZZ Resection of Appendix, Percutaneous Endoscopic Approach (ICD-10-PCS; CPT 44970; principal; 2022-12-11 07:30)
DX: K35.80 Unspecified acute appendicitis (principal); F12.90 Cannabis use, unspecified, uncomplicated
CPT/HCPCS: 44970; 36415; 80053; 81025; 83690; 96361; 96365; 96375; 99285; 74177; 81003; 81015; 83735; 85025; 88304; J0131; J0744; J1100; J1885; J2250; J2270; J2405; J2704; J3490

== ENCOUNTER 2023-12-27 10:50 | Emergency (ER) | payer SELFPAY ==
[2023-12-27 11:00] VITALS: BP 115/92; PULSE 93; RESP 16; TEMP 37.2; O2SAT 100
[2023-12-27 11:44] LABS: Bilirubin Negative (Negative); Blood Small (Negative); Clarity Sl Cloudy (Clear); Glucose Negative (Negative); Ketones Negative (Negative); Leukocyte Esterase Small (Negative); Nitrite Negative (Negative); Urobilinogen 0.2 mg/dL (Up to 0.2); pH 6.5 (5-8)
[2023-12-27 11:53] LABS: Bacteria Few HPF (Negative); C & S Indicated? Yes; Crystals Negative HPF (Negative); Epithelial Cells Few HPF (Negative); Mucus Trace (Negative); WBC 20-50 HPF (0-5)
--- NOTE | 2023-12-27 13:48 | ED.GENADUL_ITS ---
Discharge Plan Disposition Patient Disposition: Home Discharge Details Clinical Impression: UTI (urinary tract infection) Primary Care Provider: Minerva Mckeon ED Provider: Mandie Gardiner Home Meds and New Rx's Prescriptions: New cefdinir 300 mg capsule 300 mg PO BID Qty: 20 0RF Continued epinephrine [EpiPen 2-Lorenzo] 0.3 MG/0.3 ML auto-injector 0.3 mg IJ PRN PRN (Reason: Anaphylaxis) Qty: 1 0RF Velvet 14 mcg/24 hour (3 years) Intrauterine Device See Rx Instructions .ROUTE .COMPLEX Rx Instructions: 1 device Discharge Instructions Instructions: Urinary Tract Infection in Women (ED) Additional Instructions: Yogurt daily while on antibiotic Take antibiotic as prescribed until completed Recheck in 48 hours should you have new or worsening complaints Take ibuprofen 600 mg every 8 hours with food and Tylenol 650 every 4-6 hours as needed for pain Stand Alone Forms: Work Release HPI General Date/Time Provider Initiated Documentation: 12/27/23 11:03 . HPI Narrative: This 23-year-old female presents with dysuria, frequency, burning, and bilateral flank pain. Denies any chest pain or shortness of breath. Denies fever or chills. Denies any chance of . History of urinary tract infections in the past denies history of renal stones in the past. Related Data Home Medications Medication Instructions Recorded Confirmed epinephrine 0.3 mg/0.3 mL 0.3 mg (0.3 mL) IJ PRN PRN 02/06/17 12/27/23 injection, auto-injector (EpiPen Anaphylaxis ##1 2-Lorenzo) levonorgestrel 14 mcg/24 hr (up to See Rx Instructions .Route .COMPLEX 06/06/18 12/27/23 3 yrs) 13.5 mg intrauterine device (Velvet) cefdinir 300 mg capsule 300 mg PO BID #20 caps 12/27/23 Previous Rx's Medication Instructions Recorded epinephrine 0.3 mg/0.3 mL 0.3 mg (0.3 mL) IJ PRN PRN 02/06/17 injection, auto-injector (EpiPen Anaphylaxis ##1 2-Lorenzo) cefdinir 300 mg capsule 300 mg PO BID #20 caps 12/27/23 Allergies Allergy/AdvReac Type Severity Reaction Status Date / Time Penicillins Allergy Skin Rash Unverified 12/27/23 10:59 General Stated Complaint: FlankPain YULY: 3 Exam Narrative Exam Narrative: Alert and oriented 23-year-old female, no acute distress, no CVA tenderness, no suprapubic or abdominal tenderness, afebrile and nontoxic in appearance Course Vital Signs Vital signs: Vital Signs Temperature 37.2 C 12/27/23 11:00 Pulse 93 H 12/27/23 11:00 Respiratory Rate 16 12/27/23 11:00 Blood Pressure 115/92 H 12/27/23 11:00 Pulse Oximetry 100 12/27/23 11:00 Temperature 37.2 C 12/27/23 11:00 Temperature Source Temporal Artery Scan 12/27/23 11:00 Pulse 93 H 12/27/23 11:00 Respiratory Rate 16 12/27/23 11:00 Respiratory Effort Normal, Non-Labored 12/27/23 11:01 Blood Pressure 115/92 H 12/27/23 11:00 Blood Pressure Position Sitting 12/27/23 11:00 Pulse Oximetry 100 12/27/23 11:00 Oxygen Delivery Method Room Air 12/27/23 11:00 Oxygen Flow Rate 0 12/27/23 11:00 Pain Level 6 12/27/23 12:20 Comment no meds today 12/27/23 11:00 Lab/Test Results Lab/Test Results: 12/27/23 11:30 Urine - Reflex from Ua Urine Culture - Pending Laboratory Tests Range/Units 12/27/23 11:30 Urine Color (Yellow) Yellow Urine Clarity (Clear) Sl Cloudy Urine pH (5-8) 6.5 Ur Specific [place] (1.005-1.025) 1.020 Urine Protein (Neg-Trace) mg/dL 30 H Urine Ketones (Negative) mg/dL Negative Urine Blood (Negative) Small H Urine Nitrite (Negative) Negative Urine Bilirubin (Negative) Negative Urine Urobilinogen (Up to 0.2) mg/dL 0.2 Ur Leukocyte Esterase (Negative) Small H Urine RBC (0-2) HPF 3-5 H Urine WBC (0-5) HPF 20-50 H Ur Epithelial Cells (Negative) HPF Few Urine Crystals (Negative) HPF Negative Urine Bacteria (Negative) HPF Few Urine Casts (Negative) LPF 5-10 WBC Urine Mucus (Negative) Trace Ur Culture Indicated? Yes Urine Glucose (Negative) mg/dL Negative POC- Test(urine) Negative Medical Decision Making 23-year-old female presenting with urinary symptoms, urinalysis concerning for infection, 20-50 white blood cells, leukocyte esterase positive. I did review patient's CT from encounter 1 year prior to arrival that did not show any evidence of renal or ureteral stones, low suspicion clinically for ureterolithiasis. Patient with negative urine test. Will initiate cefdinir for broad-spectrum coverage pending urine culture and give patient low threshold to return should she develop new or worsening complaints. Quality:SDTX Health Related Social Needs: No Data to Display PFSH All Active Problems (Updated 12/27/23 @ 12:08 by SIMA White) Acute streptococcal pharyngitis (Acute) Dyspareunia (Acute) UTI (urinary tract infection) (Acute) Surgical History S/P laparoscopic appendectomy (~12/11/22) Family History Mother No problems noted. Father No problems noted. Sister No problems noted. Sister No problems noted. Grandfather Diabetes Grandmother No problems noted. Social History Smoking/Tobacco Use Status: Never Smoking risk assessment performed?: Yes Alcohol Intake: current Alcohol Intake frequency: holidays/special occasions only Drug use: Daily Substance use type: marijuana Housing: house Do you feel safe at home: Yes Do you feel safe in your relationship?: Yes
== END 2023-12-27 12:21 | disposition home or self-care (01) ==
PROVIDERS: Emergency Provider Physician Assistant; PCP Family Medicine
DX: R10.31 Right lower quadrant pain (principal); N39.0 Urinary tract infection, site not specified; Z87.440 Personal history of urinary (tract) infections
CPT/HCPCS: 81025; 87077; 99283; 81003; 81015; 87086; 87186